=== PATIENT | female | born 1990 | race American Indian/Alaskan Native ===

== ENCOUNTER 2021-02-26 11:50 | Inpatient (IN) | payer SELFPAY ==
[2021-02-26 13:02] LABS: Basophils % (Auto) 0.8 % (0.0-1.8); Eosinophils % (Auto) 0.1 % (0.0-4.3); Hematocrit 42.8 % (30.3-42.9); Hemoglobin 13.9 gm/dl (10.1-14.3); Lymphocytes % (Auto) 17.1 % (13.4-35.0); Mean Corpuscular HGB Conc 32 % (30-34); Mean Corpuscular Volume 87 fl (79-97); Monocytes # (Auto) 0.7 K/mm3 (0.0-0.8); Monocytes % (Auto) 12.1 % (0.0-7.3); Platelet Count 275 K/mm3 (140-440); Red Blood Count 4.94 M/mm3 (3.65-5.03); Red Cell Distribution Width 14.3 % (13.2-15.2)
[2021-02-26] MEDS ORDERED: IPRATROPIUM/ALBUTEROL SULFATE 3 ML AMPUL.NEB IH ONE ×2 (13:07→16:16)
[2021-02-26] MEDS ORDERED: SODIUM CHLORIDE 0.9% 1000 ML 1,000 ML IV ONE (13:07)
[2021-02-26] MEDS ORDERED: ACETAMINOPHEN 325 MG TAB PO ONE (13:08)
[2021-02-26] MEDS ORDERED: methylPREDNISolone Sod Succinate 125 MG/2 ML INJ IV ONE (13:08)
[2021-02-26 13:09] LABS: Alanine Aminotransferase 17 units/L (7-56); Albumin 3.9 g/dL (3.9-5); BUN/Creatinine Ratio 8; Blood Urea Nitrogen 7 mg/dL (7-17); Calcium 9.5 mg/dL (8.4-10.2); Hemolysis Index 4
--- NOTE | 2021-02-26 13:11 | Emergency Department Report ---
<SABRINA PILLAI - Last Filed: 02/26/21 21:04> ED Asthma HPI - General Chief Complaint: Dyspnea/Respdistress Stated Complaint: ASTHMA ATTACK Time Seen by Provider: 02/26/21 12:21 Source: patient Mode of arrival: Ambulatory Limitations: No Limitations - History of Present Illness Initial Comments: 30-year-old -[place] obese female with a past medical history of asthma presents to the ER today with complaints of URI symptoms and asthma flareup. She states that symptoms started about 3 days ago. She reports productive cough with green sputum, wheezing, shortness of breath, chest tightness, and diffuse chest wall/rib pain as well as back pain secondary to her coughing. She states that she has been having fever at home, highest temperature was 100.4 and she has been taking Tylenol for it. She reports associated rhinorrhea, nasal congestion and mild sore throat. She states that she has been using her nebuliz er treatments every 3-4 hours without much relief of her symptoms. She denies any apparent ill contacts. She states that the only travel that she has done is that she moved here from [place] about a month ago. She has not gotten a COVID-19 vaccine or a flu vaccine. She does admit to marijuana use but denies tobacco use and denies any other illicit drug use or alcohol abuse. She states that she has been hospitalized and intubated in the past secondary to her asthma. Last hospitalization was 2018. Last intubation was in 2003. Complaint: "asthma attack", shortness of breath, wheezing -: Gradual, days(s) (3) - Related Data Home Medications Medication Instructions Recorded Confirmed Last Taken No Known Home Medications [No 02/26/21 02/26/21 Unknown Reported Home Medications] Allergies Allergy/AdvReac Type Severity Reaction Status Date / Time Penicillins Allergy Anaphylaxis Verified 02/26/21 11:58 ED Review of Systems Comment: All other systems reviewed and negative Constitutional: fever. denies: chills ENT: congestion, other (rhinorrhea ) Respiratory: cough, shortness of breath, wheezing Cardiovascular: other (chest wall pain ) Gastrointestinal: denies: abdominal pain, nausea, vomiting, diarrhea, constipation, hematemesis, melena, hematochezia Genitourinary: denies: urgency, dysuria, frequency, hematuria, discharge, abnormal menses, dyspareunia Musculoskeletal: denies: back pain, joint swelling, arthralgia Skin: denies: rash, lesions, change in color, change in hair/nails, pruritus Neurological: denies: headache, weakness, numbness, paresthesias, confusion, abnormal gait, vertigo Psychiatric: denies: anxiety, depression, auditory hallucinations, visual hallucinations, homicidal thoughts, suicidal thoughts Hematological/Lymphatic: denies: easy bleeding, easy bruising ED Past Medical Hx - Medications Home Medications: Home Medications Medication Instructions Recorded Confirmed Last Taken Type No Known Home Medications [No 02/26/21 02/26/21 Unknown History Reported Home Medications] ED Physical Exam - General Limitations: No Limitations General appearance: alert, in no apparent distress, obese - Head Head exam: Present: atraumatic, normocephalic, normal inspection - Eye Eye exam: Present: normal appearance, PERRL, EOMI Pupils: Present: normal accommodation - ENT ENT exam: Present: normal exam, mucous membranes moist - Neck Neck exam: Present: normal inspection, full ROM. Absent: meningismus - Respiratory Respiratory exam: Present: wheezes (faint expiratory ), decreased breath sounds (mild ). Absent: respiratory distress - Cardiovascular Cardiovascular Exam: Present: normal rhythm, tachycardia, normal heart sounds - Extremities Exam Extremities exam: Absent: pedal edema, calf tenderness - Neurological Exam Neurological exam: Present: alert, oriented X3, CN II-XII intact, normal gait - Psychiatric Psychiatric exam: Present: normal affect, normal mood - Skin Skin exam: Present: intact ED Medical Decision Making - Lab Data Result diagrams: 02/26/21 12:18 02/26/21 12:18 - Radiology Data Radiology results: report reviewed Patient: KINGSLEY SALCEDO MR#: [id number] : 1990 Acct:[id number] Age/Sex: 30 / F ADM Date: 02/26/21 Loc: ED Attending Dr: Ordering Physician: SABRINA PILLAI Date of Service: 02/26/21 Procedure(s): XR chest routine 2V Accession Number(s): [id number] cc: SABRINA PILLAI Fluoro Time In Minutes: CHEST PA AND LATERAL VIEWS INDICATION: ASTHMA. COMPARISON: None. FINDINGS: Support devices: None. Heart: Within normal limits. Lungs/Pleura: No consolidation or effusion. There is mild peribronchial cuffing. IMPRESSION: 1. Mild peribronchial cuffing could be seen in the setting of lower airways disease, possibly reactive. Signer Name: Win Ware MD Signed: 02/26/2021 2:53 PM Workstation Name: [id number] Transcribed By: MICAELA Dictated By: Win Ware MD Electronically Authenticated By: Win Ware MD Signed Date/Time: 02/26/211452 DD/ 51 TD/TT: - Medical Decision Making 172: Patient states that she was feeling better after second round of DuoNeb treatment and IV magnesium, but she states that she did not feel short of breath after she was ambulated. Nurse reported that patient maintained an O2 sat of 97% on room air when she ambulated in the ER. She did not appear to be in any acute respiratory distress. Repeat chest exam shows that patient is moving air better, she does have faint wheezing in the lower lung smith. patient currently does not appear to be in any acute respiratory distress. Her repeat vital signs show improvement of her temperature after the Tylenol, she is tachycardic but this is likely related to her getting the breathing treatments, she is not tachypneic or hypoxic. She is not ill-appearing. Labs reviewed and unremarkable. Rapid flu negative. Checks x-ray shows Mild peribronchial cuffing could be seen in the setting of lower airways disease, possibly reactive. Patient requesting to be admitted, she states that she has mold in her apartment and thinks that this could be likely what is causing triggering her asthma Case was lucian with Dr. Sabillon, she recommend doing a D-dimer, and given patient on additional Xopenex treatments. 2135; patient states that her shortness of breath has improved after Xopenex treatment but now she is having pain in her chest. D-dimer was mildly elevated at 280. CTA is pending. Added a EKG and troponin given patient now complaining of chest pain. Case discussed and turned over to Dr. Hutton The patient's care has been transferred to and accepted by[Dr Hutton]. We discussed: The patient's chief complaints; labs and imaging that have been completed and those that are still pending; any treatment provided and the patient's response to treatment; any significant change in condition; the treatment plan prior to the transfer of care. The accepting provider will follow up on all pending labs and imaging and make any necessary changes to the current impression and/or treatment plan. The accepting physician/midlevel is now responsible for the patient's care and final disposition. ED Disposition Clinical Impression: Person under investigation for COVID-19, Shortness of breath Status asthmaticus Qualifiers: Asthma severity: moderate Asthma persistence: persistent Qualified Code(s): J45.42 - Moderate persistent asthma with status asthmaticus Pneumonia Qualifiers: Pneumonia type: due to other aerobic Gram-negative bacteria Laterality: bilateral Lung location: unspecified part of lung Qualified Code(s): J15.6 - Pneumonia due to other Gram-negative bacteria Fever Qualifiers: Fever type: unspecified Qualified Code(s): R50.9 - Fever, unspecified Chest pain Qualifiers: Chest pain type: unspecified Qualified Code(s): R07.9 - Chest pain, unspecified Disposition: 09 ADMITTED INPATIENT Is pt being admited?: No Does the pt Need Aspirin: No Condition: Critical <DUSTIN HUTTON III - Last Filed: 02/27/21 06:35> ED Asthma HPI - General PUI?: Yes ED Review of Systems ROS: Stated complaint: ASTHMA ATTACK Other details as noted in HPI ED Course Vital Signs 02/26/21 02/26/21 02/26/21 11:58 13:56 16:00 Temperature 100.9 F H Pulse Rate 114 H Pulse Rate [ 112 H 109 H Anterior Bilateral Throughout] Respiratory 24 Rate Respiratory 22 22 Rate [Anterior Bilateral Throughout] Blood Pressure 132/95 [Right] O2 Sat by Pulse 98 Oximetry 02/26/21 02/26/21 02/26/21 16:11 20:05 22:15 Temperature 99.7 F H Pulse Rate 110 H Pulse Rate [ 103 H Anterior Bilateral Throughout] Respiratory 17 Rate Respiratory 20 Rate [Anterior Bilateral Throughout] Blood Pressure 147/79 [Right] O2 Sat by Pulse 100 98 Oximetry 02/26/21 02/27/21 22:42 02:19 Temperature 98.9 F Pulse Rate 83 Pulse Rate [ Anterior Bilateral Throughout] Respiratory 20 Rate Respiratory Rate [Anterior Bilateral Throughout] Blood Pressure 142/84 153/79 [Right] O2 Sat by Pulse 100 Oximetry - Reevaluation(s) Reevaluation #1: I reviewed the findings and management of this patient in real-time and I have personally seen and examined this patient and participated in the decision making for this patient with the midlevel. Patient is a 30-year-old female presents emergency room with asthmatic symptoms. Patient has already received multiple medications. Patient is elevated D-dimer has a pending CTA. I examined the patient. Patient has bilateral wheezing. CV exam is within normal limits. Abdominal exam is negative. 02/26/21 2240 Reevaluation #2: I discussed all results with patient. I discussed plan of care with patient. Patient agrees with plan of care and admission. Patient to be admitted to the hospitalist service. 02/27/21 00:00 - Consultations Consultation #1: Hospitalist consulted for admission. Hospitalist to admit patient. 02/27/21 00:00 ED Medical Decision Making - Lab Data Result diagrams: 02/26/21 12:18 02/27/21 00:00 - EKG Data -: EKG Interpreted by Me EKG shows normal: sinus rhythm, axis, intervals, QRS complexes, ST-T waves Rate: normal - Radiology Data Radiology results: image reviewed CT angio chest INDICATION / CLINICAL INFORMATION: dyspnea. TECHNIQUE: Axial CT images were obtained through the chest after injection of 100 cc of Omnipaque 350 IV contrast. 3 plane MIP and/or 3D reconstructions were produced. All CT scans at this location are performed using CT dose reduction for ALARA by means of automated exposure control. COMPARISON: Same-day radiograph. FINDINGS: PULMONARY ARTERIES: No central or segmental pulmonary embolus. THORACIC AORTA: No significant abnormality. HEART: No significant abnormality. LYMPHADENOPATHY: Shotty mediastinal and hilar lymph nodes are likely reactive. LUNGS/PLEURA: Multifocal patchy groundglass opacities, most pronounced within the lingula and bilateral lower lobes. There is prominent volume loss within the lingula. No pleural effusion or pneumothorax. OTHER FINDINGS: None. UPPER ABDOMEN: No acute findings. SKELETAL SYSTEM: No acute osseous findings. IMPRESSION: 1. No evidence for pulmonary embolism. 2. Basilar predominant multifocal patchy groundglass opacities, most consistent with atypical pneumonia. - Medical Decision Making Patient is a 30-year-old female presents emergency room for status asthmaticus. Patient was given multiple breathing treatments and magnesium and Solu-Medrol. Patient's respiratory improved. Patient had elevated INR and a CTA was done which showed atypical pneumonia possibly Covid. Patient admitted to the hospital service for further evaluation treatment and status asthmaticus. Patient require observation. Critical care time documented due to the multiple reassessments, prolonged time at the bedside, interpretation of diagnostics and labs. - Differential Diagnosis Fever, status asthmaticus, URI, Covid, pneumonia Critical Care Time: Yes Critical care time in (mins) excluding proc time.: 35 Critical care attestation.: If time is entered above; I have spent that time in minutes in the direct care of this critically ill patient, excluding procedure time. Critical Care Time: 35 minutes ED Disposition Is pt being admited?: Yes Does the pt Need Aspirin: No Time of Disposition: 00:01
[2021-02-26 13:59] LABS: Bilirubin,Urine NEG (Negative); Blood,Urine NEG (Negative); Color,Urine Yellow (Yellow); Mucus,Urine 3+ /HPF
[2021-02-26 14:39] LABS: HCG Qualitative,Urine Negative (Negative)
--- NOTE | 2021-02-26 14:57 | XRay Report ---
CHEST PA AND LATERAL VIEWS INDICATION: ASTHMA. COMPARISON: None. FINDINGS: Support devices: None. Heart: Within normal limits. Lungs/Pleura: No consolidation or effusion. There is mild peribronchial cuffing. IMPRESSION: 1. Mild peribronchial cuffing could be seen in the setting of lower airways disease, possibly reactiv e. Signer Name: Win Ware MD Signed: 02/26/2021 2:53 PM Workstation Name: [id number]
[2021-02-26] MEDS ORDERED: MAGNESIUM SULFATE 2 GM/50 ML BAG IV ONE (16:16)
[2021-02-26] MEDS ORDERED: LEVALBUTEROL 0.63 MG/3 ML NEBU IH ONE (19:57)
[2021-02-26] MEDS: LEVALBUTEROL 0.63 MG/3 ML NEBU IH ONE (20:27)
--- NOTE | 2021-02-26 23:16 | Cat Scan Report ---
CT angio chest INDICATION / CLINICAL INFORMATION: dyspnea. TECHNIQUE: Axial CT images were obtained through the chest after injection of 100 cc of Omnipaque 350 IV contrast. 3 plane MIP and/or 3D reconstructions were produced. All CT scans at this location are performed using CT dose reduction for ALARA by means of automated exposure control. COMPARISON: Same-day radiograph. FINDINGS: PULMONARY ARTERIES: No central or segmental pulmonary embolus. THORACIC AORTA: No significant abnormality. HEART: No significant abnormality. LYMPHADENOPATHY: Shotty mediastinal and hilar lymph nodes are likely reactive. LUNGS/PLEURA: Multifocal patchy groundglass opacities, most pronounced within the lingula and bilater al lower lobes. There is prominent volume loss within the lingula. No pleural effusion or pneumothora x. OTHER FINDINGS: None. UPPER ABDOMEN: No acute findings. SKELETAL SYSTEM: No acute osseous findings. IMPRESSION: 1. No evidence for pulmonary embolism. 2. Basilar predominant multifocal patchy groundglass opacities, most consistent with atypical pneumon ia. Signer Name: Keenan Allen MD Signed: 02/26/2021 11:12 PM Workstation Name: [id number]
[2021-02-27] MEDS ORDERED: ACETAMINOPHEN 325 MG TAB PO PRN (01:36)
[2021-02-27] MEDS ORDERED: ALBUTEROL 2.5 MG/3 ML NEBU IH PRN (01:36)
--- NOTE | 2021-02-27 01:50 | History and Physical Report ---
History of Present Illness Date of examination: 02/27/21 Date of admission: 02/27/21 00:13 Chief complaint: Shortness of breath Cough History of present illness: 30-year-old female with known history of asthma presents to the emergency room today complaining of shortness of breath and possibly asthma flareup. She has been having some cough productive of some greenish sputum over the past 3 days. She has had associated chest discomfort with the coughing. She has some low- grade fever at home with a high of 100.4. She has taken some Tylenol with some relief. Patient also indicates that she has had some nasal congestion and mild sore throat. She has been using her nebulizer at home without any significant improvement. Patient recently moved from [place] to [place] about a month ago. She denies any sick contacts and denies any contact with anyone with COVID-19. She however indicates that she has not had the COVID-19 vaccination. She denies tobacco abuse but takes marijuana occasionally. Her last hospitalization for asthma exacerbation was in 2018. She has also had previous intubation in 2003. Work-up in the emergency room today, chest x-ray shows mild peribronchial cuffing which could be seen in the setting of lower airway disease-possibly reactive. CT angiogram of the chest reveals no evidence of pulmonary embolism. Has bibasilar predominant multifocal patchy groundglass opacities most consistent with atypical pneumonia. Patient has been started on empiric IV antibiotics, nebulizing treatments and steroids in the emergency room. She will also be ruled out for possible Covid. Past History Past Medical History: other (Asthma) Past Surgical History: Other (Last intubation 2003) Social history: other (Uses marijuana occasionally) Family history: no significant family history Medications and Allergies Allergies Allergy/AdvReac Type Severity Reaction Status Date / Time Penicillins Allergy Anaphylaxis Verified 02/26/21 11:58 Home Medications Medication Instructions Recorded Confirmed Last Taken Type No Known Home Medications [No 02/26/21 02/26/21 Unknown History Reported Home Medications] Active Meds: Active Medications Acetaminophen (Acetaminophen 325 Mg Tab) 650 mg PO Q4H PRN PRN Reason: Pain MILD(1-3)/Fever >100.5/LUCIA Albuterol (Albuterol 2.5 Mg/3 Ml Nebu) 2.5 mg IH Q4HRT PRN PRN Reason: Shortness Of Breath Albuterol/Ipratropium (Ipratropium/Albuterol Sulfate 3 Ml Ampul.Neb) 1 ampul IH Q6HRT RADHA Heparin Sodium (Porcine) (Heparin 5,000 Unit/1 Ml Vial) 5,000 unit SUB-Q Q8HR RADHA Levofloxacin/Dextrose (Levaquin 750mg/150ml) 750 mg in 150 mls @ 100 mls/hr IV ONCE ONE; Protocol Stop: 02/27/21 02:04 Sodium Chloride (Nacl 0.9% 1000 Ml) 1,000 mls @ 75 mls/hr IV DIRECT RADHA Levofloxacin/Dextrose (Levaquin 750mg/150ml) 750 mg in 150 mls @ 100 mls/hr IV Q24H RADHA; Protocol Magnesium Hydroxide (Magnesium Hydroxide (Mom) Oral Liqd Udc) 30 ml PO Q4H PRN PRN Reason: Constipation Methylprednisolone Sodium Succinate (Methylprednisolone Sod Succinate 40 Mg/1 Ml Inj) 40 mg IV Q8HR RADHA Morphine Sulfate (Morphine 2 Mg/1 Ml Inj) 2 mg IV Q4H PRN PRN Reason: Pain, Moderate (4-6) Morphine Sulfate (Morphine 4 Mg/1 Ml Inj) 4 mg IV Q4H PRN PRN Reason: Pain , Severe (7-10) Ondansetron HCl (Ondansetron 4 Mg/2 Ml Inj) 4 mg IV Q8H PRN PRN Reason: Nausea And Vomiting Sodium Chloride (Sodium Chloride 0.9% 10 Ml Flush Syringe) 10 ml IV BID RADHA Sodium Chloride (Sodium Chloride 0.9% 10 Ml Flush Syringe) 10 ml IV PRN PRN PRN Reason: LINE FLUSH Review of Systems Constitutional: no fever, no chills Ears, nose, mouth and throat: no nasal congestion, no sore throat Cardiovascular: no chest pain, no palpitations Respiratory: cough, shortness of breath, wheezing Gastrointestinal: no abdominal pain, no nausea, no vomiting, no diarrhea, no keena aisha Genitourinary Female: no pelvic pain, no flank pain, no dysuria, no hematuria Musculoskeletal: no neck pain, no low back pain Integumentary: no rash, no pruritis Neurological: no headaches, no confusion Psychiatric: no anxiety, no depression Endocrine: no polyphagia, no polydipsia, no polyuria, no nocturia Exam - Constitutional Vitals: Temp Pulse Resp BP Pulse Ox 99.7 F H 103 H 20 142/84 98 02/26/21 16:11 02/26/21 20:05 02/26/21 20:05 02/26/21 22:42 02/26/21 22:15 General appearance: Present: no acute distress, well-nourished, obese - EENT Eyes: Present: PERRL, EOM intact ENT: hearing intact, clear oral mucosa, dentition normal - Neck Neck: Present: supple, normal ROM - Respiratory Respiratory effort: normal Respiratory: bilateral: diminished, wheezing (Few scattered wheezes bilaterally) - Cardiovascular Rhythm: regular Heart Sounds: Present: S1 & S2. Absent: gallop, systolic murmur, diastolic murmur, rub, click - Extremities Extremities: no ischemia, pulses intact, pulses symmetrical, No edema, normal temperature, normal color, Full ROM Peripheral Pulses: within normal limits - Abdominal General gastrointestinal: Present: soft, non-tender, non-distended, normal bowel sounds. Absent: mass - Integumentary Integumentary: Present: clear, warm, dry. Absent: rash - Musculoskeletal Musculoskeletal: strength equal bilaterally - Psychiatric Psychiatric: appropriate mood/affect, intact judgment & insight, memory intact, cooperative - Neurologic Neurologic: CNII-XII intact, no focal deficits, moves all extremities HEART Score - HEART Score Troponin: Troponin T < 0.010 ng/mL (0.00-0.029) 02/26/21 21:38 Results - Labs CBC & Chem 7: 02/26/21 12:18 02/27/21 00:00 Labs: Abnormal lab results 02/26/21 02/26/21 02/26/21 Range/Units 12:18 12:18 13:10 [place] % (Auto) 12.1 H (0.0-7.3) % Lymph # (Auto) 1.0 L (1.2-5.4) K/mm3 D-Dimer (0-234) ng/mlDDU Sodium 135 L (137-145) mmol/L Urine WBC (Auto) 13.0 H (0.0-6.0) /HPF U Epithel Cells (Auto) 22.0 H (0-13.0) /HPF 02/26/21 Range/Units 20:05 [place] % (Auto) (0.0-7.3) % Lymph # (Auto) (1.2-5.4) K/mm3 D-Dimer 287.60 H (0-234) ng/mlDDU Sodium (137-145) mmol/L Urine WBC (Auto) (0.0-6.0) /HPF U Epithel Cells (Auto) (0-13.0) /HPF Assessment and Plan - Patient Problems (1) Status asthmaticus Current Visit: Yes Status: Acute Qualifiers: Asthma severity: moderate Asthma persistence: persistent Qualified Code(s): J45.42 - Moderate persistent asthma with status asthmaticus Plan to address problem: Patient placed on nebulizing treatments and IV steroid. We'll keep O2 saturation greater or equal to 92%. (2) Person under investigation for COVID-19 Current Visit: Yes Status: Acute Plan to address problem: We await COVID-19 testing. Consult placed to infectious disease for evaluation. (3) Pneumonia Current Visit: Yes Status: Acute Qualifiers: Pneumonia type: due to other aerobic Gram-negative bacteria Laterality: bilateral Lung location: unspecified part of lung Qualified Code(s): J15.6 - Pneumonia due to other Gram-negative bacteria Plan to address problem: Patient placed on empiric IV antibiotics. Will await culture results. (4) DVT prophylaxis Current Visit: Yes Status: Acute Plan to address problem: Patient placed on subcutaneous heparin. (5) Full code status Current Visit: Yes Status: Acute Plan to address problem: Patient is full code.
[2021-02-27] MEDS ORDERED: ONDANSETRON 4 MG/2 ML INJ IV PRN (02:00)
[2021-02-27] MEDS ORDERED: MORPHINE 4 MG/1 ML INJ IV PRN (02:00)
[2021-02-27] MEDS ORDERED: MAGNESIUM HYDROXIDE (MOM) ORAL LIQD UDC PO PRN (02:00)
[2021-02-27] MEDS ORDERED: SODIUM CHLORIDE 0.9% 1000 ML 1,000 ML IV SCH (02:00)
[2021-02-27] MEDS ORDERED: MORPHINE 2 MG/1 ML INJ IV PRN (02:00)
[2021-02-27] MEDS: IPRATROPIUM/ALBUTEROL SULFATE 3 ML AMPUL.NEB IH SCH ×4 (02:12→20:39)
[2021-02-27 03:01] LABS: C-Reactive Protein 3.9 mg/dL (0.00-1.30)
[2021-02-27] MEDS: HEPARIN 5,000 UNIT/1 ML VIAL SUB-Q SCH ×2 (06:58→13:44)
[2021-02-27] MEDS: methylPREDNISolone Sod Succinate 40 MG/1 ML INJ IV SCH ×3 (06:58→21:24)
--- NOTE | 2021-02-27 09:09 | Progress Note ---
Assessment and Plan Assessment and plan: Acute hypoxic respiratory failure acute asthma exacerbation. Suspected COVID-19 pneumonia. Bilateral pneumonia 02/27/2021. Await Covid PCR testing. Continue steroids Solu-Medrol 40 mg IV every 8 hours. Continue bronchodilators/nebulizers. Continue empiric antibiotics. Consider pulmonary and ID consultations. Continue O2 to maintain sats greater than 92% History Interval history: No new issues overnight Hospitalist Physical - Constitutional Vitals: Temp Pulse Resp BP Pulse Ox 98 F 79 18 143/88 99 02/27/21 08:28 02/27/21 08:28 02/27/21 08:28 02/27/21 08:28 02/27/21 08:28 General appearance: Present: no acute distress, well-nourished, obese - EENT Eyes: Present: PERRL, EOM intact ENT: hearing intact, clear oral mucosa, dentition normal - Neck Neck: Present: supple, normal ROM - Respiratory Respiratory effort: normal Respiratory: bilateral: CTA - Cardiovascular Rhythm: regular Heart Sounds: Present: S1 & S2. Absent: gallop, rub - Extremities Extremities: no ischemia, No edema, Full ROM - Abdominal General gastrointestinal: soft, non-tender, non-distended, normal bowel sounds - Integumentary Integumentary: Present: clear, warm, dry - Neurologic Neurologic: CNII-XII intact, moves all extremities HEART Score - HEART Score Troponin: Troponin T < 0.010 ng/mL (0.00-0.029) 02/26/21 21:38 Results - Labs CBC & Chem 7: 02/26/21 12:18 02/27/21 00:00 Labs: Laboratory Last Values WBC 5.8 K/mm3 (4.5-11.0) 02/26/21 12:18 RBC 4.94 M/mm3 (3.65-5.03) 02/26/21 12:18 Hgb 13.9 gm/dl (10.1-14.3) 02/26/21 12:18 Hct 42.8 % (30.3-42.9) 02/26/21 12:18 MCV 87 fl (79-97) 02/26/21 12:18 MCH 28 pg (28-32) 02/26/21 12:18 MCHC 32 % (30-34) 02/26/21 12:18 RDW 14.3 % (13.2-15.2) 02/26/21 12:18 Plt Count 275 K/mm3 (140-440) 02/26/21 12:18 Lymph % (Auto) 17.1 % (13.4-35.0) 02/26/21 12:18 [place] % (Auto) 12.1 % (0.0-7.3) H 02/26/21 12:18 Eos % (Auto) 0.1 % (0.0-4.3) 02/26/21 12:18 Baso % (Auto) 0.8 % (0.0-1.8) 02/26/21 12:18 Lymph # (Auto) 1.0 K/mm3 (1.2-5.4) L 02/26/21 12:18 [place] # (Auto) 0.7 K/mm3 (0.0-0.8) 02/26/21 12:18 Eos # (Auto) 0.0 K/mm3 (0.0-0.4) 02/26/21 12:18 Baso # (Auto) 0.0 K/mm3 (0.0-0.1) 02/26/21 12:18 Seg Neutrophils % 69.9 % (40.0-70.0) 02/26/21 12:18 Seg Neutrophils # 4.1 K/mm3 (1.8-7.7) 02/26/21 12:18 D-Dimer 287.60 ng/mlDDU (0-234) H 02/26/21 20:05 Sodium 135 mmol/L (137-145) L 02/26/21 12:18 Potassium 4.0 mmol/L (3.6-5.0) 02/26/21 12:18 Chloride 98.6 mmol/L (98-107) 02/26/21 12:18 Carbon Dioxide 22 mmol/L (22-30) 02/26/21 12:18 Anion Gap 18 mmol/L 02/26/21 12:18 BUN 7 mg/dL (7-17) 02/26/21 12:18 Creatinine 0.9 mg/dL (0.6-1.2) 02/26/21 12:18 Estimated GFR > 60 ml/min 02/26/21 12:18 BUN/Creatinine Ratio 8 % 02/26/21 12:18 Glucose 45 mg/dL (65-100) L 02/27/21 00:00 Calcium 9.5 mg/dL (8.4-10.2) 02/26/21 12:18 Ferritin 111.8 ng/mL (10.0-200.0) 02/27/21 00:00 Total Bilirubin 0.40 mg/dL (0.1-1.2) 02/26/21 12:18 AST 17 units/L (5-40) 02/26/21 12:18 ALT 17 units/L (7-56) 02/26/21 12:18 Alkaline Phosphatase 51 units/L (35-129) 02/26/21 12:18 Lactate Dehydrogenase 266 units/L (91-180) H 02/27/21 00:00 Troponin T < 0.010 ng/mL (0.00-0.029) 02/26/21 21:38 C-Reactive Protein 3.90 mg/dL (0.00-1.30) H 02/27/21 00:00 Total Protein 7.4 g/dL (6.3-8.2) 02/26/21 12:18 Albumin 3.9 g/dL (3.9-5) 02/26/21 12:18 Albumin/Globulin Ratio 1.1 % 02/26/21 12:18 Urine Color Yellow (Yellow) 02/26/21 13:10 Urine Turbidity Clear (Clear) 02/26/21 13:10 Urine pH 5.0 (5.0-7.0) 02/26/21 13:10 Ur Specific [place] 1.026 (1.003-1.030) 02/26/21 13:10 Urine Protein 30 mg/dl mg/dL (Negative) 02/26/21 13:10 Urine Glucose (UA) Neg mg/dL (Negative) 02/26/21 13:10 Urine Ketones 20 mg/dL (Negative) 02/26/21 13:10 Urine Blood Neg (Negative) 02/26/21 13:10 Urine Nitrite Neg (Negative) 02/26/21 13:10 Urine Bilirubin Neg (Negative) 02/26/21 13:10 Urine Urobilinogen 2.0 mg/dL (<2.0) 02/26/21 13:10 Ur Leukocyte Esterase Neg (Negative) 02/26/21 13:10 Urine WBC (Auto) 13.0 /HPF (0.0-6.0) H 02/26/21 13:10 Urine RBC (Auto) 8.0 /HPF (0.0-6.0) 02/26/21 13:10 U Epithel Cells (Auto) 22.0 /HPF (0-13.0) H 02/26/21 13:10 Urine Mucus 3+ /HPF 02/26/21 13:10 Urine HCG, Qual Negative (Negative) 02/26/21 Unknown Influenza A (Rapid) Negative (Negative) 02/26/21 Unknown Influenza B (Rapid) Negative (Negative) 02/26/21 Unknown Microbiology: Microbiology 02/26/21 13:10 Urine,Clean Catch Urine Culture - Preliminary NO GROWTH AFTER 24 HOURS Active Medications - Current Medications Current Medications: Generic Name Dose Route Start Last Admin Trade Name Freq PRN Reason Stop Dose Admin Acetaminophen 650 mg 02/27/21 01:36 Acetaminophen 325 Mg Tab PO Q4H PRN Pain MILD(1-3)/Fever >100.5/LUCIA Albuterol 2.5 mg 02/27/21 01:36 Albuterol 2.5 Mg/3 Ml Nebu IH Q4HRT PRN Shortness Of Breath Albuterol/Ipratropium 1 ampul 02/27/21 02:00 02/27/21 02:12 Ipratropium/Albuterol Sulfate 3 Ml Ampul.Neb IH 1 ampul Q6HRT RADHA Administration Heparin Sodium (Porcine) 5,000 unit 02/27/21 06:00 02/27/21 06:58 Heparin 5,000 Unit/1 Ml Vial SUB-Q Not Given Q8HR [facility] Sodium Chloride 1,000 mls @ 75 mls/hr 02/27/21 02:00 Nacl 0.9% 1000 Ml IV DIRECT RADHA Levofloxacin/Dextrose 750 mg in 150 mls @ 100 mls/hr 02/28/21 02:00 Levaquin 750mg/150ml IV Q24H [facility] Protocol Magnesium Hydroxide 30 ml 02/27/21 02:00 Magnesium Hydroxide (Mom) Oral Liqd Udc PO Q4H PRN Constipation Methylprednisolone Sodium Succinate 40 mg 02/27/21 06:00 02/27/21 06:58 Methylprednisolone Sod Succinate 40 Mg/1 Ml Inj IV 40 mg Q8HR RADHA Administration Morphine Sulfate 2 mg 02/27/21 02:00 Morphine 2 Mg/1 Ml Inj IV Q4H PRN Pain, Moderate (4-6) Morphine Sulfate 4 mg 02/27/21 02:00 Morphine 4 Mg/1 Ml Inj IV Q4H PRN Pain , Severe (7-10) Ondansetron HCl 4 mg 02/27/21 02:00 Ondansetron 4 Mg/2 Ml Inj IV Q8H PRN Nausea And Vomiting Sodium Chloride 10 ml 02/27/21 10:00 Sodium Chloride 0.9% 10 Ml Flush Syringe IV BID RADHA Sodium Chloride 10 ml 02/27/21 02:00 Sodium Chloride 0.9% 10 Ml Flush Syringe IV PRN PRN LINE FLUSH
[2021-02-27] MEDS ORDERED: diphenhydrAMINE 25 MG CAP PO ONE (21:40)
[2021-02-28] MEDS: HEPARIN 5,000 UNIT/1 ML VIAL SUB-Q SCH ×4 (01:32→21:14)
[2021-02-28] MEDS: IPRATROPIUM/ALBUTEROL SULFATE 3 ML AMPUL.NEB IH SCH ×4 (02:04→19:54)
[2021-02-28 05:12] LABS: Basophils % (Auto) 0.1 % (0.0-1.8); Hematocrit 42.4 % (30.3-42.9); Hemoglobin 13.4 gm/dl (10.1-14.3); Lymphocytes % (Auto) 10.2 % (13.4-35.0); Mean Corpuscular HGB Conc 32 % (30-34); Mean Corpuscular Volume 88 fl (79-97); Monocytes # (Auto) 0.9 K/mm3 (0.0-0.8); Monocytes % (Auto) 8.8 % (0.0-7.3); Platelet Count 327 K/mm3 (140-440); Red Blood Count 4.84 M/mm3 (3.65-5.03); Red Cell Distribution Width 14.2 % (13.2-15.2)
[2021-02-28 05:26] LABS: INR 0.96 (0.87-1.13)
[2021-02-28] MEDS: methylPREDNISolone Sod Succinate 40 MG/1 ML INJ IV SCH ×3 (05:42→21:14)
[2021-02-28 05:50] LABS: BUN/Creatinine Ratio 15; Blood Urea Nitrogen 12 mg/dL (7-17); Calcium 9.5 mg/dL (8.4-10.2); Hemolysis Index 5
--- NOTE | 2021-02-28 08:34 | Discharge Summary ---
Providers - Providers Date of Admission: 02/27/21 00:13 Date of discharge: 02/28/21 Attending physician: GERARD GUEVARA 02/27/21 01:36 Consult to Physician [CONS] Routine Comment: Consulting Provider: DICK MORE Physician Instructions: Reason For Exam: Pneumonia,PUI Hospitalization Reason for admission: asthma exac Condition: Critical Hospital course: 30-year-old female with known history of asthma presents to the emergency room today complaining of shortness of breath and possibly asthma flareup. The patient reported cough productive of some greenish sputum over the past 3 days [employer]. She also had associated chest discomfort with the coughing. She had some low-grade fever at home with a high of 100.4. The patient reportedly had been using her nebulizer at home without any significant improvement. Patient recently moved from [place] to [place] about a month ago. She denied any sick contacts and denies any contact with anyone with COVID-19. She however indicates that she has not had the COVID-19 vaccination. Work-up in the emergency room, chest x-ray showed mild peribronchial cuffing which could be seen in the setting of lower airway disease-possibly reactive. CT angiogram of the chest reveals no evidence of pulmonary embolism. The patient had bibasilar predominant multifocal patchy groundglass opacities most consistent with atypical pneumonia seen on CTA. The patient was admitted with diagnosis of acute hypoxic respiratory failure with acute asthma exacerbation, suspected COVID-19 pneumonia. Patient was started on empiric IV antibiotics, nebulizing treatments and steroids in the emergency room. The patient underwent Covid testing which was found to be negative. Patient received IV Solu-Medrol and bronchodilators/nebulizer treatment for acute asthma exacerbation. Exam - Constitutional Vitals: Temp Pulse Resp BP Pulse Ox 97.9 F 85 18 117/64 95 02/28/21 05:25 02/28/21 05:25 02/28/21 02:06 02/28/21 05:25 02/28/21 05:25 Plan Follow up with: Ariela RICHARDSON MD [Other] - 3-5 Days
--- NOTE | 2021-02-28 10:06 | Progress Note ---
Assessment and Plan Assessment and plan: 30-year-old female with known history of asthma presents to the emergency room today complaining of shortness of breath and possibly asthma flareup. The patient reported cough productive of some greenish sputum over the past 3 days [employer]. She also had associated chest discomfort with the coughing. She had some low-grade fever at home with a high of 100.4. The patient reportedly had been using her nebulizer at home without any significant improvement. Patient recently moved from [place] to [place] about a month ago. She denied any sick contacts and denies any contact with anyone with COVID-19. She however indicates that she has not had the COVID-19 vaccination. Work-up in the emergency room, chest x-ray showed mild peribronchial cuffing which could be seen in the setting of lower airway disease-possibly reactive. CT angiogram of the chest reveals no evidence of pulmonary embolism. The chalino ent had bibasilar predominant multifocal patchy groundglass opacities most consistent with atypical pneumonia seen on CTA. The patient was admitted with diagnosis of acute hypoxic respiratory failure with acute asthma exacerbation, suspected COVID-19 pneumonia. Patient was started on empiric IV antibiotics, nebulizing treatments and steroids in the emergency room. The patient underwent Covid testing which was found to be negative. Patient received IV Solu-Medrol and bronchodilators/nebulizer treatment for acute asthma exacerbation. Acute hypoxic respiratory failure acute asthma exacerbation. Bilateral pneumonia. COVID-19 PCR negative 02/27/2021. Await Covid PCR testing. Continue steroids Solu-Medrol 40 mg IV every 8 hours. Continue bronchodilators/nebulizers. Continue empiric antibiotics. Consider pulmonary and ID consultations. Continue O2 to maintain sats greater than 92% 02/28/2021. Covid PCR testing is negative. Check procalcitonin levels. Continue steroids Solu-Medrol 40 mg IV every 8 hours. Continue bronchodilators/nebulizers. Continue IV antibiotics. Patient recently doing well with saturations of 97% on room air. However, patient complains of dyspnea with exertion. History Interval history: No new issues overnight Hospitalist Physical - Constitutional Vitals: Temp Pulse Resp BP Pulse Ox 97.9 F 85 19 117/64 96 02/28/21 05:25 02/28/21 05:25 02/28/21 08:29 02/28/21 05:25 02/28/21 08:29 General appearance: Present: no acute distress, well-nourished, obese - EENT Eyes: Present: PERRL, EOM intact ENT: hearing intact, clear oral mucosa, dentition normal - Neck Neck: Present: supple, normal ROM - Respiratory Respiratory effort: normal Respiratory: bilateral: CTA - Cardiovascular Rhythm: regular Heart Sounds: Present: S1 & S2. Absent: gallop, rub - Extremities Extremities: no ischemia, No edema, Full ROM - Abdominal General gastrointestinal: soft, non-tender, non-distended, normal bowel sounds - Integumentary Integumentary: Present: clear, warm, dry - Neurologic Neurologic: CNII-XII intact, moves all extremities HEART Score - HEART Score Troponin: Troponin T < 0.010 ng/mL (0.00-0.029) 02/26/21 21:38 Results - Labs CBC & Chem 7: 02/28/21 04:19 02/28/21 04:19 Labs: Laboratory Last Values WBC 9.8 K/mm3 (4.5-11.0) 02/28/21 04:19 RBC 4.84 M/mm3 (3.65-5.03) 02/28/21 04:19 Hgb 13.4 gm/dl (10.1-14.3) 02/28/21 04:19 Hct 42.4 % (30.3-42.9) 02/28/21 04:19 MCV 88 fl (79-97) 02/28/21 04:19 MCH 28 pg (28-32) 02/28/21 04:19 MCHC 32 % (30-34) 02/28/21 04:19 RDW 14.2 % (13.2-15.2) 02/28/21 04:19 Plt Count 327 K/mm3 (140-440) 02/28/21 04:19 Lymph % (Auto) 10.2 % (13.4-35.0) L 02/28/21 04:19 [place] % (Auto) 8.8 % (0.0-7.3) H 02/28/21 04:19 Eos % (Auto) 0.0 % (0.0-4.3) 02/28/21 04:19 Baso % (Auto) 0.1 % (0.0-1.8) 02/28/21 04:19 Lymph # (Auto) 1.0 K/mm3 (1.2-5.4) L 02/28/21 04:19 [place] # (Auto) 0.9 K/mm3 (0.0-0.8) H 02/28/21 04:19 Eos # (Auto) 0.0 K/mm3 (0.0-0.4) 02/28/21 04:19 Baso # (Auto) 0.0 K/mm3 (0.0-0.1) 02/28/21 04:19 Seg Neutrophils % 80.9 % (40.0-70.0) H 02/28/21 04:19 Seg Neutrophils # 7.9 K/mm3 (1.8-7.7) H 02/28/21 04:19 PT 13.8 Sec. (12.2-14.9) 02/28/21 04:19 INR 0.96 (0.87-1.13) 02/28/21 04:19 D-Dimer 287.60 ng/mlDDU (0-234) H 02/26/21 20:05 Sodium 137 mmol/L (137-145) 02/28/21 04:19 Potassium 4.3 mmol/L (3.6-5.0) 02/28/21 04:19 Chloride 101.7 mmol/L (98-107) 02/28/21 04:19 Carbon Dioxide 24 mmol/L (22-30) 02/28/21 04:19 Anion Gap 16 mmol/L 02/28/21 04:19 BUN 12 mg/dL (7-17) 02/28/21 04:19 Creatinine 0.8 mg/dL (0.6-1.2) 02/28/21 04:19 Estimated GFR > 60 ml/min 02/28/21 04:19 BUN/Creatinine Ratio 15 % 02/28/21 04:19 Glucose 138 mg/dL (65-100) H 02/28/21 04:19 Calcium 9.5 mg/dL (8.4-10.2) 02/28/21 04:19 Ferritin 111.8 ng/mL (10.0-200.0) 02/27/21 00:00 Total Bilirubin 0.40 mg/dL (0.1-1.2) 02/26/21 12:18 AST 17 units/L (5-40) 02/26/21 12:18 ALT 17 units/L (7-56) 02/26/21 12:18 Alkaline Phosphatase 51 units/L (35-129) 02/26/21 12:18 Lactate Dehydrogenase 266 units/L (91-180) H 02/27/21 00:00 Troponin T < 0.010 ng/mL (0.00-0.029) 02/26/21 21:38 C-Reactive Protein 3.90 mg/dL (0.00-1.30) H 02/27/21 00:00 Total Protein 7.4 g/dL (6.3-8.2) 02/26/21 12:18 Albumin 3.9 g/dL (3.9-5) 02/26/21 12:18 Albumin/Globulin Ratio 1.1 % 02/26/21 12:18 Procalcitonin < 0.05 ng/mL (<0.15) 02/27/21 00:00 Urine Color Yellow (Yellow) 02/26/21 13:10 Urine Turbidity Clear (Clear) 02/26/21 13:10 Urine pH 5.0 (5.0-7.0) 02/26/21 13:10 Ur Specific [place] 1.026 (1.003-1.030) 02/26/21 13:10 Urine Protein 30 mg/dl mg/dL (Negative) 02/26/21 13:10 Urine Glucose (UA) Neg mg/dL (Negative) 02/26/21 13:10 Urine Ketones 20 mg/dL (Negative) 02/26/21 13:10 Urine Blood Neg (Negative) 02/26/21 13:10 Urine Nitrite Neg (Negative) 02/26/21 13:10 Urine Bilirubin Neg (Negative) 02/26/21 13:10 Urine Urobilinogen 2.0 mg/dL (<2.0) 02/26/21 13:10 Ur Leukocyte Esterase Neg (Negative) 02/26/21 13:10 Urine WBC (Auto) 13.0 /HPF (0.0-6.0) H 02/26/21 13:10 Urine RBC (Auto) 8.0 /HPF (0.0-6.0) 02/26/21 13:10 U Epithel Cells (Auto) 22.0 /HPF (0-13.0) H 02/26/21 13:10 Urine Mucus 3+ /HPF 02/26/21 13:10 Urine HCG, Qual Negative (Negative) 02/26/21 Unknown Coronavirus (PCR) Negative (Negative) 02/27/21 07:48 Influenza A (Rapid) Negative (Negative) 02/26/21 Unknown Influenza B (Rapid) Negative (Negative) 02/26/21 Unknown Microbiology: Microbiology 02/26/21 13:10 Urine,Clean Catch Urine Culture - Preliminary NO GROWTH AFTER 24 HOURS [place]/IV: Voiding Method Toilet Active Medications - Current Medications Current Medications: Generic Name Dose Route Start Last Admin Trade Name Freq PRN Reason Stop Dose Admin Acetaminophen 650 mg 02/27/21 01:36 Acetaminophen 325 Mg Tab PO Q4H PRN Pain MILD(1-3)/Fever >100.5/LUCIA Albuterol 2.5 mg 02/27/21 01:36 Albuterol 2.5 Mg/3 Ml Nebu IH Q4HRT PRN Shortness Of Breath Albuterol/Ipratropium 1 ampul 02/27/21 02:00 02/28/21 08:35 Ipratropium/Albuterol Sulfate 3 Ml Ampul.Neb IH 1 ampul Q6HRT RADHA Administration Heparin Sodium (Porcine) 5,000 unit 02/27/21 06:00 02/28/21 05:12 Heparin 5,000 Unit/1 Ml Vial SUB-Q Not Given Q8HR [facility] Sodium Chloride 1,000 mls @ 75 mls/hr 02/27/21 02:00 Nacl 0.9% 1000 Ml IV DIRECT RADHA Levofloxacin/Dextrose 750 mg in 150 mls @ 100 mls/hr 02/28/21 02:00 02/28/21 01:41 Levaquin 750mg/150ml IV 100 mls/hr Q24H RADHA Administration Protocol Magnesium Hydroxide 30 ml 02/27/21 02:00 Magnesium Hydroxide (Mom) Oral Liqd Udc PO Q4H PRN Constipation Methylprednisolone Sodium Succinate 40 mg 02/27/21 06:00 02/28/21 05:42 Methylprednisolone Sod Succinate 40 Mg/1 Ml Inj IV 40 mg Q8HR RADHA Administration Morphine Sulfate 2 mg 02/27/21 02:00 Morphine 2 Mg/1 Ml Inj IV Q4H PRN Pain, Moderate (4-6) Morphine Sulfate 4 mg 02/27/21 02:00 Morphine 4 Mg/1 Ml Inj IV Q4H PRN Pain , Severe (7-10) Ondansetron HCl 4 mg 02/27/21 02:00 Ondansetron 4 Mg/2 Ml Inj IV Q8H PRN Nausea And Vomiting Sodium Chloride 10 ml 02/27/21 10:00 02/27/21 21:25 Sodium Chloride 0.9% 10 Ml Flush Syringe IV 10 ml BID RADHA Administration Sodium Chloride 10 ml 02/27/21 02:00 Sodium Chloride 0.9% 10 Ml Flush Syringe IV PRN PRN LINE FLUSH
[2021-02-28] MEDS: FAMOTIDINE 20 MG TAB PO SCH (14:06)
[2021-02-28] MEDS: CETIRIZINE 10 MG TAB PO SCH (14:06)
[2021-03-01] MEDS: HEPARIN 5,000 UNIT/1 ML VIAL SUB-Q SCH ×4 (01:27→23:38)
[2021-03-01] MEDS: IPRATROPIUM/ALBUTEROL SULFATE 3 ML AMPUL.NEB IH SCH ×4 (02:42→19:03)
[2021-03-01] MEDS: methylPREDNISolone Sod Succinate 40 MG/1 ML INJ IV SCH ×3 (06:28→21:41)
--- NOTE | 2021-03-01 08:58 | Progress Note ---
Assessment and Plan Assessment and plan: 30-year-old female with known history of asthma presents to the emergency room today complaining of shortness of breath and possibly asthma flareup. The patient reported cough productive of some greenish sputum over the past 3 days [employer]. She also had associated chest discomfort with the coughing. She had some low-grade fever at home with a high of 100.4. The patient reportedly had been using her nebulizer at home without any significant improvement. Patient recently moved from [place] to [place] about a month ago. She denied any sick contacts and denies any contact with anyone with COVID-19. She however indicates that she has not had the COVID-19 vaccination. Work-up in the emergency room, chest x-ray showed mild peribronchial cuffing which could be seen in the setting of lower airway disease-possibly reactive. CT angiogram of the chest reveals no evidence of pulmonary embolism. The chalino ent had bibasilar predominant multifocal patchy groundglass opacities most consistent with atypical pneumonia seen on CTA. The patient was admitted with diagnosis of acute hypoxic respiratory failure with acute asthma exacerbation, suspected COVID-19 pneumonia. Patient was started on empiric IV antibiotics, nebulizing treatments and steroids in the emergency room. The patient underwent Covid testing which was found to be negative. Patient received IV Solu-Medrol and bronchodilators/nebulizer treatment for acute asthma exacerbation. Acute hypoxic respiratory failure acute asthma exacerbation. Bilateral pneumonia. COVID-19 PCR negative Elevated D-dimer. CTA negative. 02/27/2021. Await Covid PCR testing. Continue steroids Solu-Medrol 40 mg IV every 8 hours. Continue bronchodilators/nebulizers. Continue empiric antibiotics. Consider pulmonary and ID consultations. Continue O2 to maintain sats greater than 92% 02/28/2021. Covid PCR testing is negative. Check procalcitonin levels. Continue steroids Solu-Medrol 40 mg IV every 8 hours. Continue bronchodilators/nebulizers. Continue IV antibiotics. Patient recently doing well with saturations of 97% on room air. However, patient complains of dyspnea with exertion. 03/01/2021. Procalcitonin levels are normal. Continue IV steroids and wean as tolerated. Continue bronchodilators/nebulizers. Continue IV antibiotics. History Interval history: No new issues overnight Hospitalist Physical - Constitutional Vitals: Temp Pulse Resp BP Pulse Ox 97.5 F L 83 18 146/86 98 03/01/21 03:51 03/01/21 03:51 03/01/21 03:51 03/01/21 03:51 03/01/21 08:00 General appearance: Present: no acute distress, well-nourished, obese - EENT Eyes: Present: PERRL, EOM intact ENT: hearing intact, clear oral mucosa, dentition normal - Neck Neck: Present: supple, normal ROM - Respiratory Respiratory effort: normal Respiratory: bilateral: CTA - Cardiovascular Rhythm: regular Heart Sounds: Present: S1 & S2. Absent: gallop, rub - Extremities Extremities: no ischemia, No edema, Full ROM - Abdominal General gastrointestinal: soft, non-tender, non-distended, normal bowel sounds - Integumentary Integumentary: Present: clear, warm, dry - Neurologic Neurologic: CNII-XII intact, moves all extremities HEART Score - HEART Score Troponin: Troponin T < 0.010 ng/mL (0.00-0.029) 02/26/21 21:38 Results - Labs CBC & Chem 7: 02/28/21 04:19 02/28/21 04:19 Labs: Laboratory Last Values WBC 9.8 K/mm3 (4.5-11.0) 02/28/21 04:19 RBC 4.84 M/mm3 (3.65-5.03) 02/28/21 04:19 Hgb 13.4 gm/dl (10.1-14.3) 02/28/21 04:19 Hct 42.4 % (30.3-42.9) 02/28/21 04:19 MCV 88 fl (79-97) 02/28/21 04:19 MCH 28 pg (28-32) 02/28/21 04:19 MCHC 32 % (30-34) 02/28/21 04:19 RDW 14.2 % (13.2-15.2) 02/28/21 04:19 Plt Count 327 K/mm3 (140-440) 02/28/21 04:19 Lymph % (Auto) 10.2 % (13.4-35.0) L 02/28/21 04:19 [place]arton % (Auto) 8.8 % (0.0-7.3) H 02/28/21 04:19 Eos % (Auto) 0.0 % (0.0-4.3) 02/28/21 04:19 Baso % (Auto) 0.1 % (0.0-1.8) 02/28/21 04:19 Lymph # (Auto) 1.0 K/mm3 (1.2-5.4) L 02/28/21 04:19 [place]arton # (Auto) 0.9 K/mm3 (0.0-0.8) H 02/28/21 04:19 Eos # (Auto) 0.0 K/mm3 (0.0-0.4) 02/28/21 04:19 Baso # (Auto) 0.0 K/mm3 (0.0-0.1) 02/28/21 04:19 Seg Neutrophils % 80.9 % (40.0-70.0) H 02/28/21 04:19 Seg Neutrophils # 7.9 K/mm3 (1.8-7.7) H 02/28/21 04:19 PT 13.8 Sec. (12.2-14.9) 02/28/21 04:19 INR 0.96 (0.87-1.13) 02/28/21 04:19 D-Dimer 287.60 ng/mlDDU (0-234) H 02/26/21 20:05 Sodium 137 mmol/L (137-145) 02/28/21 04:19 Potassium 4.3 mmol/L (3.6-5.0) 02/28/21 04:19 Chloride 101.7 mmol/L (98-107) 02/28/21 04:19 Carbon Dioxide 24 mmol/L (22-30) 02/28/21 04:19 Anion Gap 16 mmol/L 02/28/21 04:19 BUN 12 mg/dL (7-17) 02/28/21 04:19 Creatinine 0.8 mg/dL (0.6-1.2) 02/28/21 04:19 Estimated GFR > 60 ml/min 02/28/21 04:19 BUN/Creatinine Ratio 15 % 02/28/21 04:19 Glucose 138 mg/dL (65-100) H 02/28/21 04:19 Calcium 9.5 mg/dL (8.4-10.2) 02/28/21 04:19 Ferritin 111.8 ng/mL (10.0-200.0) 02/27/21 00:00 Total Bilirubin 0.40 mg/dL (0.1-1.2) 02/26/21 12:18 AST 17 units/L (5-40) 02/26/21 12:18 ALT 17 units/L (7-56) 02/26/21 12:18 Alkaline Phosphatase 51 units/L (35-129) 02/26/21 12:18 Lactate Dehydrogenase 266 units/L (91-180) H 02/27/21 00:00 Troponin T < 0.010 ng/mL (0.00-0.029) 02/26/21 21:38 C-Reactive Protein 3.90 mg/dL (0.00-1.30) H 02/27/21 00:00 Total Protein 7.4 g/dL (6.3-8.2) 02/26/21 12:18 Albumin 3.9 g/dL (3.9-5) 02/26/21 12:18 Albumin/Globulin Ratio 1.1 % 02/26/21 12:18 Procalcitonin < 0.05 ng/mL (<0.15) 02/28/21 10:29 Urine Color Yellow (Yellow) 02/26/21 13:10 Urine Turbidity Clear (Clear) 02/26/21 13:10 Urine pH 5.0 (5.0-7.0) 02/26/21 13:10 Ur Specific [place] 1.026 (1.003-1.030) 02/26/21 13:10 Urine Protein 30 mg/dl mg/dL (Negative) 02/26/21 13:10 Urine Glucose (UA) Neg mg/dL (Negative) 02/26/21 13:10 Urine Ketones 20 mg/dL (Negative) 02/26/21 13:10 Urine Blood Neg (Negative) 02/26/21 13:10 Urine Nitrite Neg (Negative) 02/26/21 13:10 Urine Bilirubin Neg (Negative) 02/26/21 13:10 Urine Urobilinogen 2.0 mg/dL (<2.0) 02/26/21 13:10 Ur Leukocyte Esterase Neg (Negative) 02/26/21 13:10 Urine WBC (Auto) 13.0 /HPF (0.0-6.0) H 02/26/21 13:10 Urine RBC (Auto) 8.0 /HPF (0.0-6.0) 02/26/21 13:10 U Epithel Cells (Auto) 22.0 /HPF (0-13.0) H 02/26/21 13:10 Urine Mucus 3+ /HPF 02/26/21 13:10 Urine HCG, Qual Negative (Negative) 02/26/21 Unknown Coronavirus (PCR) Negative (Negative) 02/27/21 07:48 Influenza A (Rapid) Negative (Negative) 02/26/21 Unknown Influenza B (Rapid) Negative (Negative) 02/26/21 Unknown Microbiology: Microbiology 02/26/21 13:10 Urine,Clean Catch Urine Culture - Final Mcgrath/IV: Voiding Method Toilet Active Medications - Current Medications Current Medications: Generic Name Dose Route Start Last Admin Trade Name Freq PRN Reason Stop Dose Admin Acetaminophen 650 mg 02/27/21 01:36 Acetaminophen 325 Mg Tab PO Q4H PRN Pain MILD(1-3)/Fever >100.5/LUCIA Albuterol 2.5 mg 02/27/21 01:36 Albuterol 2.5 Mg/3 Ml Nebu IH Q4HRT PRN Shortness Of Breath Albuterol/Ipratropium 1 ampul 02/27/21 02:00 03/01/21 07:45 Ipratropium/Albuterol Sulfate 3 Ml Ampul.Neb IH 1 ampul Q6HRT RADHA Administration Cetirizine HCl 10 mg 02/28/21 14:00 02/28/21 14:06 Cetirizine 10 Mg Tab PO 10 mg QDAY RADHA Administration Famotidine 20 mg 02/28/21 14:00 02/28/21 14:06 Famotidine 20 Mg Tab PO 20 mg QDAY RADHA Administration Heparin Sodium (Porcine) 5,000 unit 02/27/21 06:00 03/01/21 06:27 Heparin 5,000 Unit/1 Ml Vial SUB-Q Not Given Q8HR [facility] Sodium Chloride 1,000 mls @ 75 mls/hr 02/27/21 02:00 Nacl 0.9% 1000 Ml IV DIRECT RADHA Levofloxacin/Dextrose 750 mg in 150 mls @ 100 mls/hr 02/28/21 02:00 03/01/21 06:29 Levaquin 750mg/150ml IV Infused Q24H RADHA Infusion Protocol Magnesium Hydroxide 30 ml 02/27/21 02:00 Magnesium Hydroxide (Mom) Oral Liqd Udc PO Q4H PRN Constipation Methylprednisolone Sodium Succinate 40 mg 02/27/21 06:00 03/01/21 06:28 Methylprednisolone Sod Succinate 40 Mg/1 Ml Inj IV 40 mg Q8HR RADHA Administration Morphine Sulfate 2 mg 02/27/21 02:00 Morphine 2 Mg/1 Ml Inj IV Q4H PRN Pain, Moderate (4-6) Morphine Sulfate 4 mg 02/27/21 02:00 Morphine 4 Mg/1 Ml Inj IV Q4H PRN Pain , Severe (7-10) Ondansetron HCl 4 mg 02/27/21 02:00 Ondansetron 4 Mg/2 Ml Inj IV Q8H PRN Nausea And Vomiting Sodium Chloride 10 ml 02/27/21 10:00 02/28/21 21:13 Sodium Chloride 0.9% 10 Ml Flush Syringe IV 10 ml BID RADHA Administration Sodium Chloride 10 ml 02/27/21 02:00 Sodium Chloride 0.9% 10 Ml Flush Syringe IV PRN PRN LINE FLUSH
[2021-03-01] MEDS: CETIRIZINE 10 MG TAB PO SCH (09:21)
[2021-03-01] MEDS: FAMOTIDINE 20 MG TAB PO SCH (09:21)
[2021-03-01 09:58] LABS: BUN/Creatinine Ratio 14; Blood Urea Nitrogen 11 mg/dL (7-17); Calcium 9.5 mg/dL (8.4-10.2); Hemolysis Index 16
--- NOTE | 2021-03-01 10:19 | Event Note ---
Date: 03/01/21 30-year-old female admitted with acute shortness of breath and possibly asthma exacerbation. Infectious diseases had been consulted for COVID-19 PUI. Patient has since tested negative for COVID-19 by PCR. CRP 3.9, procalcitonin 0.05. CTA revealed basilar patchy groundglass opacities. On room air. Likely viral pneumonia causing asthma exacerbation. No antibiotics needed. ID will sign off. Please call with questions. Nagi Chester MD, FACP, [facility] ([facility] O: [phone] F: [phone]
[2021-03-02] MEDS: IPRATROPIUM/ALBUTEROL SULFATE 3 ML AMPUL.NEB IH SCH ×3 (02:39→17:14)
[2021-03-02] MEDS: methylPREDNISolone Sod Succinate 40 MG/1 ML INJ IV SCH (05:24)
[2021-03-02] MEDS: HEPARIN 5,000 UNIT/1 ML VIAL SUB-Q SCH (05:24)
[2021-03-02 06:17] LABS: Basophils % (Auto) 0.2 % (0.0-1.8); Hematocrit 41.2 % (30.3-42.9); Hemoglobin 13.3 gm/dl (10.1-14.3); Lymphocytes # (Auto) 1.5 K/mm3 (1.2-5.4); Lymphocytes % (Auto) 15.9 % (13.4-35.0); Mean Corpuscular HGB Conc 32 % (30-34); Mean Corpuscular Volume 87 fl (79-97); Monocytes # (Auto) 0.8 K/mm3 (0.0-0.8); Monocytes % (Auto) 8.4 % (0.0-7.3); Platelet Count 342 K/mm3 (140-440); Red Blood Count 4.72 M/mm3 (3.65-5.03)
[2021-03-02 06:39] LABS: BUN/Creatinine Ratio 15; Blood Urea Nitrogen 12 mg/dL (7-17); Calcium 9.5 mg/dL (8.4-10.2); Hemolysis Index 12
--- NOTE | 2021-03-02 08:09 | Discharge Summary ---
Providers - Providers Date of Admission: 02/27/21 00:13 Date of discharge: 03/02/21 Attending physician: HERMILO MADRID MD 02/27/21 01:36 Consult to Physician [CONS] Routine Comment: Consulting Provider: DICK MORE Physician Instructions: Reason For Exam: Pneumonia,PUI Hospitalization Reason for admission: shortness of breath Condition: Critical Hospital course: 30-year-old female with known history of asthma presents to the emergency room today complaining of shortness of breath and possibly asthma flareup. The patient reported cough productive of some greenish sputum over the past 3 days [employer]. She also had associated chest discomfort with the coughing. She had some low-grade fever at home with a high of 100.4. The patient reportedly had been using her nebulizer at home without any significant improvement. Patient recently moved from [place] to [place] about a month ago. She denied any sick contacts and denies any contact with anyone with COVID-19. She however indicates that she has not had the COVID-19 vaccination. Work-up in the emergency room, chest x-ray showed mild peribronchial cuffing which could be seen in the setting of lower airway disease-possibly reactive. CT angiogram of the chest reveals no evidence of pulmonary embolism. The patient had bibasilar predominant multifocal patchy groundglass opacities most consistent with atypical pneumonia seen on CTA. The patient was admitted with diagnosis of acute hypoxic respiratory failure with acute asthma exacerbation, suspected COVID-19 pneumonia. Patient was started on empiric IV antibiotics, nebulizing treatments and steroids in the emergency room. The patient underwent Covid testing which was found to be negative. Patient received IV Solu-Medrol and bronchodilators/nebulizer treatment for acute asthma exacerbation. Acute hypoxic respiratory failure acute asthma exacerbation. Bilateral pneumonia. COVID-19 PCR negative Elevated D-dimer. CTA negative. 02/27/2021. Await Covid PCR testing. Continue steroids Solu-Medrol 40 mg IV every 8 hours. Continue bronchodilators/nebulizers. Continue empiric antibiotics. Consider pulmonary and ID consultations. Continue O2 to maintain sats greater than 92% 02/28/2021. Covid PCR testing is negative. Check procalcitonin levels. Continue steroids Solu-Medrol 40 mg IV every 8 hours. Continue bronchodilators/nebulizers. Continue IV antibiotics. Patient recently doing well with saturations of 97% on room air. However, patient complains of dyspnea with exertion. 03/01/2021. Procalcitonin levels are normal. Continue IV steroids and wean as tolerated. Continue bronchodilators/nebulizers. Continue IV antibiotics. 03/02/2021: Walking O2 test completed. sats 93-95% on room air while walking down [address] 4 times. Patient cited cost as a primary concern and why she is not on guideline directed therapy for asthma. WIll rx advair and albuterol inhalers as well as steroid taper. Advair priced out with assistance of CM. Patient mother will help with meds. Disposition: HOME / SELF CARE / HOMELESS Final Discharge Diagnosis (Prints w/discharge instructions): asthma exacerbation Time spent for discharge: 35 Core Measure Documentation - Palliative Care Palliative Care/ Comfort Measures: Not Applicable - Core Measures Any of the following diagnoses?: none Exam - Physical Exam Narrative exam: Physical Exam: VITAL SIGNS: Reviewed. GENERAL: The patient appears normally developed, Vital signs as documented. HEAD: No signs of head trauma. EYES: Pupils are equal. Extraocular motions intact. EARS: Hearing grossly intact. MOUTH: Oropharynx is normal. NECK: No adenopathy, no JVD. CHEST: Chest with clear breath sounds bilaterally. No wheezes, rales, or rhonchi. CARDIAC: Regular rate and rhythm. S1 and S2, without murmurs, gallops, or rubs. VASCULAR: No Edema. Peripheral pulses normal and equal in all extremities. ABDOMEN: Soft, non tender and non distended. No rebound or guarding, and no masses palpated. Bowel Sounds normal. MUSCULOSKELETAL: Good range of motion of all major joints. Extremities without clubbing, cyanosis or edema. NEUROLOGIC EXAM: Alert and oriented x 4. no focal sensory or strength deficits. PSYCHIATRIC: Mood normal. SKIN: detail exam as documented in skin assessment - Constitutional Vitals: Temp Pulse Resp BP Pulse Ox 98.1 F 63 16 135/83 95 03/02/21 05:06 03/02/21 05:06 03/02/21 05:06 03/02/21 05:06 03/02/21 05:06 Plan Activity: advance as tolerated Weight Bearing Status: Weight Bear as Tolerated Diet: low fat, low cholesterol Follow up with: DYLAN GALLEGOS,S [Other] - 3-5 Days Prescriptions: Fluticasone/Salmeterol [Advair Diskus 250-50 mcg] 1 puff IH BID 30 Days #1 disk.w.dev predniSONE [Deltasone] 5 mg PO .TAPER 12 Days #48 tab ALBUTEROL NEB's [Proventil 0.083% NEBS] 2.5 mg IH QID PRN 3 Days #1 neb PRN Reason: Wheezing
[2021-03-02] MEDS: CETIRIZINE 10 MG TAB PO SCH (10:12)
[2021-03-02] MEDS: FAMOTIDINE 20 MG TAB PO SCH (10:12)
[2021-03-02 12:33] VITALS: BP 139/93
--- NOTE | 2021-03-02 14:09 | Electrocardiograph Report ---
[facility] Test Date: 2021-02-26 Test Time: 21:45:53 Pat Name: KINGSLEY SALCEDO Department: Room: A390 Gender: F Meat Manager: ED NURSE : 1990 Requested By: SABRINA PILLAI Order Number: [id number] Reading MD: Chino Rendon Measurements Intervals [place] Rate: 89 P: 68 GA: 167 QRS: 48 QRSD: 91 T: 33 QT: 364 QTc: 443 Interpretive Statements Sinus rhythm No previous ECG available for comparison Electronically Signed On 03-02-2021 14:09:29 EST by Chino Rendon
== END 2021-03-02 14:00 | disposition home or self-care (01) | DRG 189 ==
LOC: ED 11:50 → OBSVTOIN 02-27 00:13 → 3A 02-27 00:13
PROVIDERS: ADMIT Internal Medicine Geriatric Medicine; ATTEND Internal Medicine
DX: J96.01 Acute respiratory failure with hypoxia (principal); J18.9 Pneumonia, unspecified organism; J45.902 Unspecified asthma with status asthmaticus; Z20.822 Contact with and (suspected) exposure to COVID-19
CPT/HCPCS: 36415; 71046; 71275; 80048; 80053; 81001; 81025; 82728; 82947; 83615; 84145; 84484; 85025; 85379; 85610; 86140; 87086; 87400; 93005; 94640; 94644; 94760; 99291; G0378; Q0162; J1644; J1956; J2920; J2930; J3475; J7030; Q9967; U0003